=== PATIENT | female | born 1995 | race African-American/Black ===

== ENCOUNTER 2017-01-03 13:28 | Emergency (ER) | payer SELFPAY ==
[~2017-01-03] VITALS: Ht 167.6 cm; Wt 55.0 kg
[2017-01-03 13:29] VITALS: BP 106/67; PULSE 71; RESP 14; TEMP 98.9; O2SAT 100
== END 2017-01-03 16:01 | disposition left against medical advice (07) ==
LOC: NED 13:28
DX: S69.92XA Unspecified injury of left wrist, hand and finger(s), initial encounter (principal); X58.XXXA Exposure to other specified factors, initial encounter
CPT/HCPCS: 99281